=== PATIENT | male | born 1980 | race African-American/Black ===

== ENCOUNTER 2024-11-09 13:00 | Outpatient (CLI) | payer OTHER, SELFPAY ==
--- NOTE | 2024-11-09 13:09 | XR_ITS ---
WS: [id number] Standing views of both knees, AP and lateral views, 11/09/2024 Clinical Data: CHRONIC KNEE PAIN Comparison: None. Findings: Right knee: There are no fractures or dislocations. The medial and lateral joint spaces are normal. The posterior right patella shows minimal spurring. The soft tissues are normal. Left knee: There is medial joint compartment narrowing with irregularity of the medial femoral condyle. There is a small lateral femoral condyle spur. There are there is small radiopaque fragments which may be from an old injury. The left patella shows posterior irregularity and spurring. The soft tissues are normal. No new fractures or dislocations are seen. XR/[place] [id number] Impression: 1. Minimal osteoarthritis of the right knee with posterior patella irregularity . 2. Probable old injury to left knee with multiple small metal fragments. 3. Moderate osteoarthritis of the left knee with medial joint compartment narro wing, femoral condyle spurring and left patellar spurring.
== END 2024-11-09 13:01 | disposition home or self-care (01) ==
DX: M17.12 Unilateral primary osteoarthritis, left knee (principal); R93.6 Abnormal findings on diagnostic imaging of limbs; M77.8 Other enthesopathies, not elsewhere classified
CPT/HCPCS: 73565

== ENCOUNTER 2024-11-22 12:05 | Outpatient (CLI) | payer OTHER, SELFPAY ==
--- NOTE | 2024-11-22 12:15 | XRR_ITS ---
PROCEDURE INFORMATION: Exam: XR Left Ankle Exam date and time: 11/22/2024 12:52 PM Age: 44 years old Clinical indication: Pain; Ankle and foot; Left; Additional info: Pain in L ankle foot TECHNIQUE: Imaging protocol: Radiologic exam of the left ankle. Views: 3 or more views. COMPARISON: [place] [id number] 11/09/2024 1:35 PM FINDINGS: Bones/joints: Normal. Soft tissues: Normal. XR/XR ankle LT min 3V* [id number] IMPRESSION: No acute findings.
--- NOTE | 2024-11-22 12:15 | XRR_ITS ---
PROCEDURE INFORMATION: Exam: XR Right Ankle Exam date and time: 11/22/2024 12:52 PM Age: 44 years old Clinical indication: Pain; Ankle and foot; Left; Additional info: Pain in L ankle foot TECHNIQUE: Imaging protocol: Radiologic exam of the right ankle. Views: 3 or more views. COMPARISON: [place] [id number] 11/09/2024 1:35 PM FINDINGS: Bones/joints: Minimal tibiotalar DJD. No acute fracture, dislocation or other osseous abnormality Soft tissues: Normal. XR/XR ankle RT min 3V* [id number] IMPRESSION: No acute findings. See above
== END 2024-11-22 12:06 | disposition home or self-care (01) ==
PROVIDERS: Visit Provider Internal Medicine
DX: M25.572 Pain in left ankle and joints of left foot (principal)
CPT/HCPCS: 73610